=== PATIENT | female | born 1935 | race Caucasian/White ===

== ENCOUNTER 2021-08-16 04:33 | Inpatient (IN) ==
[2021-08-16] MEDS ORDERED: 0.9 % Sodium Chloride 500 ML IVC ONE (08:12)
[2021-08-16] MEDS ORDERED: SODIUM CHLORIDE/NAHCO3/KCL/PEG 4,000 ML SOLN.RECON PO ONE (09:30)
[2021-08-16 09:54] LABS: Basophils % 0.4 %; Eosinophils % 0.1 %; Hematocrit 24.1 % (35.3-44.9); Hemoglobin 7.6 g/dL (11.5-15.4); Immature Granulocytes % 0.6 % (0-4); Lymphocytes # 0.7 K/mcL (0.6-4.6); Mean Corpuscular HGB Conc 31.5 g/dL (31.6-35.5); Mean Corpuscular Hemoglobin 30.3 pg (28.0-33.3); Mean Platelet Volume 9.9 fL (9.4-12.4); Monocytes # 0.3 K/mcL (0.0-1.3); Monocytes % 3.6 %; Neutrophils # 6.9 K/mcL (1.6-8.9); Platelet Count 319 K/mcL (140-400); Red Blood Count 2.51 M/mcL (3.82-4.97); Segmented Neutrophils % 86.3 %
[2021-08-16 10:05] LABS: INR 2.9; Prothrombin Time 32.3 Seconds (9.4-12.1)
[2021-08-16 10:13] LABS: BUN/Creatinine Ratio 37 (6-26); Blood Urea Nitrogen 37 mg/dL (8-23); Calcium 8.5 mg/dL (8.6-10.3); Carbon Dioxide 28 mEq/L (23-29); Chloride 102 mEq/L (98-107); Glucose 180 mg/dL (70-105); Osmolality,Calculated 291 (280-300); Potassium 4.7 mEq/L (3.5-5.1); Sodium 134 mEq/L (136-145); eGFR For African Americans > 60 (> 60); eGFR For Non-African Americans 53 (> 60)
[2021-08-16] MEDS: cefTRIAXone 2,000 MG in 0.9 % Sodium Chloride Mini Bag 100 ML IVPB SCH (10:53)
[2021-08-16] MEDS ORDERED: Naloxone 0.4 MG/ML INJ IVP PRN (11:08)
[2021-08-16] MEDS ORDERED: Ondansetron 4 MG/2 ML VIAL IVP PRN (11:08)
[2021-08-16] MEDS: MetroNIDAZOLE 500 MG/100 ML 500 MG/100 ML BAG IVPB SCH ×2 (18:41→23:21)
[2021-08-17] MEDS ORDERED: *HR* Dextrose 50 % in Water (Syg) 50 ML SYRINGE IVP PRN (07:32)
[2021-08-17] MEDS ORDERED: Dextrose Gel 15 GM/37.5 ML TUBE PO PRN ×2 (07:32)
[2021-08-17] MEDS ORDERED: D5% in Water 1,000 ML IVC PRN (07:32)
[2021-08-17 09:38] LABS: Basophils % 0.6 %; Eosinophils % 0.8 %; Hematocrit 20.9 % (35.3-44.9); Hemoglobin 6.7 g/dL (11.5-15.4); Lymphocytes # 1.1 K/mcL (0.6-4.6); Lymphocytes % 22.7 %; Mean Corpuscular HGB Conc 32.1 g/dL (31.6-35.5); Mean Corpuscular Hemoglobin 30.5 pg (28.0-33.3); Mean Platelet Volume 9.8 fL (9.4-12.4); Monocytes # 0.4 K/mcL (0.0-1.3); Monocytes % 8.8 %; Neutrophils # 3.2 K/mcL (1.6-8.9); Platelet Count 200 K/mcL (140-400); Red Cell Distribution Width 14.7 % (11.5-14.5); Segmented Neutrophils % 66.1 %; White Blood Count 4.9 K/mcL (4.3-11.1)
[2021-08-17 09:57] LABS: BUN/Creatinine Ratio 30 (6-26); Blood Urea Nitrogen 23 mg/dL (8-23); Calcium 8.4 mg/dL (8.6-10.3); Carbon Dioxide 28 mEq/L (23-29); Chloride 105 mEq/L (98-107); Glucose 81 mg/dL (70-105); Osmolality,Calculated 289 (280-300); Potassium 3.6 mEq/L (3.5-5.1); Sodium 138 mEq/L (136-145); eGFR For African Americans > 60 (> 60); eGFR For Non-African Americans > 60 (> 60)
[2021-08-17] MEDS ORDERED: 0.9 % Sodium Chloride 250 ML IVC SCH (10:15)
[2021-08-17] MEDS ORDERED: Lidocaine -MPF 2% 5 ML VIAL ONE (11:31)
[2021-08-17] MEDS: MetroNIDAZOLE 500 MG/100 ML 500 MG/100 ML BAG IVPB SCH (13:18)
[2021-08-17] MEDS: Artificial Tears SOLN 15 ML BOTTLE BOTH EYES SCH (13:21)
[2021-08-17] MEDS: Loratadine 10 MG TABLET PO SCH (13:22)
[2021-08-17] MEDS: Magnesium Oxide 400 MG TABLET PO SCH (13:22)
[2021-08-17] MEDS: cefTRIAXone 2,000 MG in 0.9 % Sodium Chloride Mini Bag 100 ML IVPB SCH (13:23)
[2021-08-17] MEDS: Pantoprazole 40 MG VIAL IVP SCH ×2 (13:26→18:56)
[2021-08-17] MEDS: Insulin LISPRO 300 UNITS/3 ML VIAL SUBQ SCH ×2 (13:26→18:55)
[2021-08-17 13:44] LABS: Hematocrit 21.7 % (35.3-44.9); Hemoglobin 7.1 g/dL (11.5-15.4)
[2021-08-17] MEDS: Cholecalciferol (D-3) 1,000 UNIT (25MCG) TABLET PO SCH (21:54)
[2021-08-17 22:40] LABS: Hematocrit 26.1 % (35.3-44.9); Hemoglobin 8.3 g/dL (11.5-15.4)
[2021-08-17] MEDS: Ofloxacin *EAR* Drops 5 ML BOTTLE RIGHT EAR SCH (23:56)
[2021-08-18] MEDS: Insulin LISPRO 300 UNITS/3 ML VIAL SUBQ SCH ×5 (00:53→17:11)
[2021-08-18] MEDS: Pantoprazole 40 MG VIAL IVP SCH (05:03)
[2021-08-18] MEDS: Cholecalciferol (D-3) 1,000 UNIT (25MCG) TABLET PO SCH ×2 (08:33→20:06)
[2021-08-18] MEDS: Loratadine 10 MG TABLET PO SCH (08:34)
[2021-08-18] MEDS: DilTIAZem CD (24hr) 240 MG CAP.ER.24H PO SCH (08:34)
[2021-08-18] MEDS: Magnesium Oxide 400 MG TABLET PO SCH (08:34)
[2021-08-18] MEDS: Artificial Tears SOLN 15 ML BOTTLE BOTH EYES SCH ×2 (11:28→20:08)
[2021-08-18 14:51] LABS: Basophils % 0.3 %; Eosinophils # 0.1 K/mcL (0.0-0.6); Eosinophils % 1.1 %; Hematocrit 28.5 % (35.3-44.9); Hemoglobin 9.1 g/dL (11.5-15.4); Immature Granulocytes % 0.5 % (0-4); Lymphocytes # 0.9 K/mcL (0.6-4.6); Lymphocytes % 13.2 %; Mean Corpuscular HGB Conc 31.9 g/dL (31.6-35.5); Mean Corpuscular Hemoglobin 29.8 pg (28.0-33.3); Mean Corpuscular Volume 93.4 fL (83.0-100.0); Mean Platelet Volume 9.8 fL (9.4-12.4); Monocytes # 0.5 K/mcL (0.0-1.3); Monocytes % 7.6 %; Platelet Count 242 K/mcL (140-400); Red Blood Count 3.05 M/mcL (3.82-4.97); Red Cell Distribution Width 15.8 % (11.5-14.5); Segmented Neutrophils % 77.3 %; White Blood Count 6.5 K/mcL (4.3-11.1)
[2021-08-18 15:06] LABS: BUN/Creatinine Ratio 20 (6-26); Blood Urea Nitrogen 15 mg/dL (8-23); Calcium 8.9 mg/dL (8.6-10.3); Carbon Dioxide 25 mEq/L (23-29); Chloride 110 mEq/L (98-107); Glucose 183 mg/dL (70-105); Osmolality,Calculated 290 (280-300); Potassium 3.5 mEq/L (3.5-5.1); Sodium 137 mEq/L (136-145); eGFR For African Americans > 60 (> 60); eGFR For Non-African Americans > 60 (> 60)
[2021-08-18 16:31] LABS: Hematocrit 27.2 % (35.3-44.9)
[2021-08-18] MEDS: Apixaban 5 MG TABLET PO SCH (20:07)
[2021-08-18] MEDS: Ofloxacin *EAR* Drops 5 ML BOTTLE RIGHT EAR SCH (20:09)
[2021-08-18] MEDS ORDERED: Insulin LISPRO 300 UNITS/3 ML VIAL SUBQ SCH (21:00)
[2021-08-19 02:07] LABS: Hematocrit 25.5 % (35.3-44.9)
[2021-08-19 02:27] LABS: % Iron Saturation 5 % (15-50); Iron 16 mcg/dL (50-170); Transferrin 224 mg/dL (203-362)
[2021-08-19 08:07] VITALS: PULSE 71; TEMP 98.3; O2SAT 99
[2021-08-19 08:21] LABS: Hematocrit 27.9 % (35.3-44.9); Hemoglobin 8.9 g/dL (11.5-15.4)
[2021-08-19] MEDS: Cholecalciferol (D-3) 1,000 UNIT (25MCG) TABLET PO SCH (08:22)
[2021-08-19] MEDS: Magnesium Oxide 400 MG TABLET PO SCH (08:22)
[2021-08-19] MEDS: Insulin LISPRO 300 UNITS/3 ML VIAL SUBQ SCH ×2 (08:22→12:37)
[2021-08-19] MEDS: Apixaban 5 MG TABLET PO SCH (08:22)
[2021-08-19] MEDS: Loratadine 10 MG TABLET PO SCH (08:22)
[2021-08-19] MEDS: Artificial Tears SOLN 15 ML BOTTLE BOTH EYES SCH (08:25)
[2021-08-19] MEDS: DilTIAZem CD (24hr) 240 MG CAP.ER.24H PO SCH (08:31)
[2021-08-19 15:03] VITALS: BP 109/50
== END 2021-08-19 15:06 | disposition home or self-care (01) | DRG 378 ==
LOC: 2NNU → SUATTDRO 09:21 → 2ANU 08-18 15:20
PROVIDERS: ADMIT Student in an Organized Health Care Education/Training Program; ATTEND Internal Medicine

== ENCOUNTER 2022-04-07 17:04 | Inpatient (IN) ==
[2022-04-07] MEDS ORDERED: Ondansetron 4 MG/2 ML VIAL IVP ONE (22:37)
[2022-04-08] MEDS ORDERED: *HR* OxyCODONE Immed Rel 5 MG TABLET PO ONE (00:46)
[2022-04-08] MEDS ORDERED: *HR* Heparin 5,000 UNIT/ML VIAL IVP PRN ×2 (01:38)
[2022-04-08] MEDS ORDERED: *HR* HYDROcodone/Acet 5/325 mg TABLET PO PRN (01:41)
[2022-04-08] MEDS ORDERED: *HR* OxyCODONE Immed Rel 5 MG TABLET PO PRN (01:42)
[2022-04-08] MEDS ORDERED: Heparin 25,000UNIT/250ML 1/2NS 25,000 UNIT/250 ML IV.SOLN IVC SCH (01:45)
[2022-04-08] MEDS ORDERED: *HR* Dextrose 50 % in Water (Syg) 50 ML SYRINGE IVP PRN ×2 (01:47→18:53)
[2022-04-08] MEDS ORDERED: Ondansetron 4 MG/2 ML VIAL IVP PRN ×3 (01:47→18:53)
[2022-04-08] MEDS ORDERED: D5% in Water 1,000 ML IVC PRN ×2 (01:47→18:53)
[2022-04-08] MEDS ORDERED: Dextrose Gel 15 GM/37.5 ML TUBE PO PRN ×4 (01:47→18:53)
[2022-04-08] MEDS ORDERED: Naloxone 0.4 MG/ML INJ IVP PRN ×2 (01:47→18:53)
[2022-04-08] MEDS: 0.9 % Sodium Chloride 1,000 ML IVC SCH ×2 (02:27→18:02)
[2022-04-08 04:06] LABS: Hematocrit 36.6 % (35.3-44.9); Hemoglobin 12.2 g/dL (11.5-15.4); Mean Corpuscular HGB Conc 33.3 g/dL (31.6-35.5); Mean Corpuscular Hemoglobin 32.6 pg (28.0-33.3); Mean Corpuscular Volume 97.9 fL (83.0-100.0); Mean Platelet Volume 9.5 fL (9.4-12.4); Platelet Count 220 K/mcL (140-400); Red Blood Count 3.74 M/mcL (3.82-4.97); Red Cell Distribution Width 12.7 % (11.5-14.5); White Blood Count 5.9 K/mcL (4.3-11.1)
[2022-04-08 04:26] LABS: % Iron Saturation 43 % (15-50); Iron 131 mcg/dL (50-170); Transferrin 219 mg/dL (203-362)
[2022-04-08 04:28] LABS: Calcium 8.6 mg/dL (8.6-10.3); Chol/HDL Ratio 2.7 (0-4.9); Magnesium 1.8 mg/dL (1.6-2.6); Troponin I 0.06 ng/mL (< 0.04)
[2022-04-08 04:32] LABS: Estimated Average Glucose 114 mg/dl; Hemoglobin A1C 5.6 %
[2022-04-08 04:43] LABS: Ferritin 21 ng/mL (10-120)
[2022-04-08 04:46] LABS: Folate 12.5 ng/mL (3.0-16.0)
[2022-04-08 04:58] LABS: Bacteria,Urine Few per hpf (None-Few); Bilirubin,Urine Negative (Negative); Blood,Urine Moderate (Negative); Clarity,Urine Clear (Clear); Color,Urine Light-Yellow (Yellow); Glucose,Urine (UA) Normal (Normal); Ketones,Urine Negative (Negative); Leukocyte Esterase,Urine Large (Negative); Mucus,Urine Few per lpf (None-Few); Nitrite,Urine Negative (Negative); Protein,Urine Negative (Neg-Trace); RBC,Urine 30-50 per hpf (0-3); Specific Gravity,Urine 1.014 (1.010-1.025); Squamous Epithelial Cell,Urine Few per hpf (None-Few); Urobilinogen,Urine Normal (Normal); WBC,Urine 15-30 per hpf (0-3)
[2022-04-08] MEDS: Famotidine 20 MG/2 ML VIAL IVP SCH ×2 (05:52→17:48)
[2022-04-08] MEDS: Insulin LISPRO 300 UNITS/3 ML VIAL SUBQ SCH ×4 (05:55→23:24)
[2022-04-08] MEDS: Artificial Tears SOLN 15 ML BOTTLE BOTH EYES SCH ×4 (08:00→21:04)
[2022-04-08] MEDS ORDERED: Loratadine 10 MG TABLET PO SCH (09:00)
[2022-04-08] MEDS ORDERED: DilTIAZem CD (24hr) 120 MG CAP.ER.24H PO SCH (09:00)
[2022-04-08] MEDS ORDERED: Magnesium Oxide 400 MG TABLET PO SCH (09:00)
[2022-04-08] MEDS ORDERED: Letrozole 2.5 MG TABLET PO SCH (09:00)
[2022-04-08] MEDS ORDERED: Ketorolac 30 MG/ML VIAL IVP ONE (13:03)
[2022-04-08] MEDS ORDERED: CeFAZolin Syr 2,000MG/20 ML 2,000 MG/20 ML SYRINGE IVPB ONE (13:36)
[2022-04-08] MEDS ORDERED: Ringers Solution, Lactated 1,000 ML IVC SCH (13:45)
[2022-04-08] MEDS ORDERED: Vancomycin 1,000 MG VIAL ONE (13:45)
[2022-04-08] MEDS ORDERED: *HR* OxyCODONE/APAP 5/325 TABLET PO PRN (14:06)
[2022-04-08] MEDS ORDERED: Albuterol 2.5 MG/3 ML NEBULIZER IH PRN (14:06)
[2022-04-08] MEDS ORDERED: *HR* HYDROmorphone PF 0.5 MG/0.5 ML SYRINGE IVP PRN (14:06)
[2022-04-08] MEDS ORDERED: *HR* Labetalol 20 MG/4 ML SYRINGE IVP PRN (14:06)
[2022-04-08] MEDS ORDERED: Ipratropium Neb 0.5 MG NEBULIZER IH PRN (14:06)
[2022-04-08] MEDS ORDERED: Ketorolac 30 MG/ML VIAL IVP PRN (17:00)
[2022-04-08] MEDS ORDERED: TOTAL JOINT MIXTURE (100ML) INTRAART ONE (18:00)
[2022-04-08] MEDS ORDERED: Povidone-Iodine 45 ML, Sodium Chloride IRRigation 1,000 ML IR ONE (18:00)
[2022-04-08] MEDS ORDERED: Ondansetron 4 MG/2 ML VIAL IVP ONE (18:03)
[2022-04-08] MEDS ORDERED: *HR* Promethazine 25 MG/ML VIAL IM PRN (18:53)
[2022-04-08] MEDS ORDERED: MOM Conc 10 ML UD.LIQ PO PRN (18:53)
[2022-04-08] MEDS ORDERED: Sennosides 8.6 MG TABLET PO PRN (18:53)
[2022-04-08] MEDS: Ringers Solution, Lactated 1,000 ML IVC SCH (21:03)
[2022-04-08] MEDS: Ascorbic Acid 500 MG TABLET PO SCH (21:04)
[2022-04-08] MEDS: CeFAZolin 2 GM/120 ML BAG IVPB SCH (22:04)
[2022-04-09 01:56] LABS: Hematocrit 33.8 % (35.3-44.9); Hemoglobin 10.8 g/dL (11.5-15.4); Immature Granulocytes % 0.4 % (0-4); Lymphocytes # 0.4 K/mcL (0.6-4.6); Lymphocytes % 6.5 %; Mean Corpuscular Hemoglobin 32.2 pg (28.0-33.3); Mean Corpuscular Volume 100.9 fL (83.0-100.0); Mean Platelet Volume 9.5 fL (9.4-12.4); Monocytes # 0.5 K/mcL (0.0-1.3); Monocytes % 8.1 %; Neutrophils # 4.8 K/mcL (1.6-8.9); Platelet Count 182 K/mcL (140-400); Red Blood Count 3.35 M/mcL (3.82-4.97); Red Cell Distribution Width 12.4 % (11.5-14.5); White Blood Count 5.7 K/mcL (4.3-11.1)
[2022-04-09 02:16] LABS: Calcium 7.8 mg/dL (8.6-10.3); Potassium 4.8 mEq/L (3.5-5.1)
[2022-04-09] MEDS: *HR* OxyCODONE Immed Rel 5 MG TABLET PO PRN (04:27)
[2022-04-09] MEDS: Insulin LISPRO 300 UNITS/3 ML VIAL SUBQ SCH ×3 (04:28→17:24)
[2022-04-09] MEDS: CeFAZolin 2 GM/120 ML BAG IVPB SCH (04:28)
[2022-04-09] MEDS: Famotidine 20 MG/2 ML VIAL IVP SCH ×2 (04:31→18:41)
[2022-04-09] MEDS ORDERED: DilTIAZem CD (24hr) 120 MG CAP.ER.24H PO SCH (09:00)
[2022-04-09] MEDS ORDERED: NON-FORMULARY MEDICATION 1 EACH EACH (Vit C/E/Zn/Coppr/Lutein/Zeaxan [Preservision Areds 2 PO SCH (09:00)
[2022-04-09] MEDS ORDERED: Magnesium Oxide 400 MG TABLET PO SCH (09:00)
[2022-04-09] MEDS: Ringers Solution, Lactated 1,000 ML IVC SCH (10:27)
[2022-04-09] MEDS: Ascorbic Acid 500 MG TABLET PO SCH ×2 (10:31→18:41)
[2022-04-09] MEDS: DilTIAZem CD (24hr) 120 MG CAP.ER.24H PO SCH (10:31)
[2022-04-09] MEDS: Letrozole 2.5 MG TABLET PO SCH (10:31)
[2022-04-09] MEDS: Magnesium Oxide 400 MG TABLET PO SCH (10:31)
[2022-04-09] MEDS: Artificial Tears SOLN 15 ML BOTTLE BOTH EYES SCH ×4 (10:32→21:56)
[2022-04-09] MEDS: Loratadine 10 MG TABLET PO SCH (10:32)
[2022-04-09] MEDS: Multivit/Ca/Min/Fe/FA 1 TAB TABLET PO SCH (10:32)
[2022-04-09] MEDS: Aspirin 81 MG TAB.CHEW PO SCH ×2 (12:25→22:21)
[2022-04-10] MEDS: *HR* OxyCODONE Immed Rel 5 MG TABLET PO PRN (00:36)
[2022-04-10 04:19] LABS: Basophils % 0.3 %; Eosinophils # 0.2 K/mcL (0.0-0.6); Eosinophils % 2.9 %; Hematocrit 34.5 % (35.3-44.9); Hemoglobin 11.3 g/dL (11.5-15.4); Immature Granulocytes % 0.3 % (0-4); Lymphocytes % 15.7 %; Mean Corpuscular HGB Conc 32.8 g/dL (31.6-35.5); Mean Corpuscular Hemoglobin 31.7 pg (28.0-33.3); Mean Corpuscular Volume 96.6 fL (83.0-100.0); Mean Platelet Volume 9.3 fL (9.4-12.4); Monocytes # 0.6 K/mcL (0.0-1.3); Monocytes % 9.7 %; Neutrophils # 4.5 K/mcL (1.6-8.9); Platelet Count 207 K/mcL (140-400); Red Blood Count 3.57 M/mcL (3.82-4.97); Red Cell Distribution Width 12.5 % (11.5-14.5); Segmented Neutrophils % 71.1 %; White Blood Count 6.3 K/mcL (4.3-11.1)
[2022-04-10 04:37] LABS: Calcium 8.4 mg/dL (8.6-10.3); Potassium 4.6 mEq/L (3.5-5.1)
[2022-04-10] MEDS: Famotidine 20 MG/2 ML VIAL IVP SCH ×2 (06:28→17:11)
[2022-04-10] MEDS: Insulin LISPRO 300 UNITS/3 ML VIAL SUBQ SCH ×4 (08:18→19:52)
[2022-04-10] MEDS: Magnesium Oxide 400 MG TABLET PO SCH (08:41)
[2022-04-10] MEDS: Ascorbic Acid 500 MG TABLET PO SCH ×2 (08:41→16:36)
[2022-04-10] MEDS: DilTIAZem CD (24hr) 120 MG CAP.ER.24H PO SCH (08:42)
[2022-04-10] MEDS: Loratadine 10 MG TABLET PO SCH (08:42)
[2022-04-10] MEDS: Aspirin 81 MG TAB.CHEW PO SCH ×2 (08:42→19:33)
[2022-04-10] MEDS: Multivit/Ca/Min/Fe/FA 1 TAB TABLET PO SCH (08:42)
[2022-04-10] MEDS: Artificial Tears SOLN 15 ML BOTTLE BOTH EYES SCH ×4 (08:42→19:33)
[2022-04-10] MEDS: Letrozole 2.5 MG TABLET PO SCH (08:48)
[2022-04-10] MEDS ORDERED: Letrozole 2.5 MG TABLET PO SCH (15:00)
[2022-04-10] MEDS: Linaclotide [Linzess] 145 MCG Capsule PO SCH (19:33)
[2022-04-10] MEDS ORDERED: FERROUS SULFATE 325 MG PO SCH (21:00)
[2022-04-10] MEDS ORDERED: NON-FORMULARY MEDICATION 1 EACH EACH (Famotidine [Pepcid] 40 MG Tablet) PO SCH (21:00)
[2022-04-11 05:38] LABS: Hematocrit 35.5 % (35.3-44.9); Hemoglobin 11.7 g/dL (11.5-15.4); Mean Corpuscular Hemoglobin 32.5 pg (28.0-33.3); Mean Corpuscular Volume 98.6 fL (83.0-100.0); Mean Platelet Volume 9.8 fL (9.4-12.4); Platelet Count 229 K/mcL (140-400); Red Cell Distribution Width 12.8 % (11.5-14.5); White Blood Count 5.7 K/mcL (4.3-11.1)
[2022-04-11] MEDS: Aspirin 81 MG TAB.CHEW PO SCH (08:47)
[2022-04-11] MEDS: Ascorbic Acid 500 MG TABLET PO SCH ×2 (08:47→17:04)
[2022-04-11] MEDS: Spironolactone 25 MG TABLET PO SCH ×2 (08:47→19:33)
[2022-04-11] MEDS: Insulin LISPRO 300 UNITS/3 ML VIAL SUBQ SCH ×4 (08:47→19:39)
[2022-04-11] MEDS: Magnesium Oxide 400 MG TABLET PO SCH (08:47)
[2022-04-11] MEDS: Letrozole 2.5 MG TABLET PO SCH (08:47)
[2022-04-11] MEDS: Loratadine 10 MG TABLET PO SCH (08:48)
[2022-04-11] MEDS: DilTIAZem CD (24hr) 120 MG CAP.ER.24H PO SCH (08:48)
[2022-04-11] MEDS: Multivit/Ca/Min/Fe/FA 1 TAB TABLET PO SCH (08:48)
[2022-04-11] MEDS: Linaclotide [Linzess] 145 MCG Capsule PO SCH ×2 (08:49→19:34)
[2022-04-11] MEDS: Artificial Tears SOLN 15 ML BOTTLE BOTH EYES SCH ×4 (08:49→19:34)
[2022-04-11] MEDS: [UNRECOGNIZED DRUG - OTHER] PO SCH (08:49)
[2022-04-11] MEDS ORDERED: Loratadine 10 MG TABLET PO SCH (09:00)
[2022-04-11] MEDS: Apixaban 5 MG TABLET PO SCH ×2 (13:24→19:33)
[2022-04-11] MEDS ORDERED: Famotidine 20 MG TABLET PO SCH (21:00)
[2022-04-12] MEDS: Insulin LISPRO 300 UNITS/3 ML VIAL SUBQ SCH ×2 (08:07→11:26)
[2022-04-12 08:35] LABS: Hemoglobin 11.8 g/dL (11.5-15.4); Mean Corpuscular HGB Conc 32.8 g/dL (31.6-35.5); Mean Corpuscular Hemoglobin 32.2 pg (28.0-33.3); Mean Corpuscular Volume 98.4 fL (83.0-100.0); Mean Platelet Volume 9.4 fL (9.4-12.4); Platelet Count 237 K/mcL (140-400); Red Blood Count 3.66 M/mcL (3.82-4.97); Red Cell Distribution Width 12.7 % (11.5-14.5); White Blood Count 5.5 K/mcL (4.3-11.1)
[2022-04-12] MEDS: Letrozole 2.5 MG TABLET PO SCH (08:49)
[2022-04-12] MEDS: Spironolactone 25 MG TABLET PO SCH (08:49)
[2022-04-12] MEDS: Linaclotide [Linzess] 145 MCG Capsule PO SCH (08:50)
[2022-04-12] MEDS: Loratadine 10 MG TABLET PO SCH (08:50)
[2022-04-12] MEDS: Ascorbic Acid 500 MG TABLET PO SCH (08:50)
[2022-04-12] MEDS: Multivit/Ca/Min/Fe/FA 1 TAB TABLET PO SCH (08:50)
[2022-04-12] MEDS: [UNRECOGNIZED DRUG - OTHER] PO SCH (08:50)
[2022-04-12] MEDS: DilTIAZem CD (24hr) 120 MG CAP.ER.24H PO SCH (08:51)
[2022-04-12] MEDS: Apixaban 5 MG TABLET PO SCH (08:51)
[2022-04-12] MEDS: Magnesium Oxide 400 MG TABLET PO SCH (08:51)
[2022-04-12] MEDS: Artificial Tears SOLN 15 ML BOTTLE BOTH EYES SCH (08:52)
[2022-04-12 13:10] LABS: Influenza A PCR Negative (Negative); Influenza B PCR Negative (Negative); Resp. Syncytial Virus PCR Negative (Negative)
[2022-04-12 13:11] LABS: SARS-CoV-2 by PCR (In House) Negative (Negative)
[2022-04-12 16:18] VITALS: BP 122/67; PULSE 79; TEMP 98; O2SAT 97
== END 2022-04-12 14:43 | DRG 521 ==
LOC: 3BNU → 4WAOSI 04-09 17:50
PROVIDERS: ADMIT Student in an Organized Health Care Education/Training Program; ATTEND Student in an Organized Health Care Education/Training Program